=== PATIENT | female | born 1975 | race Caucasian/White ===

== ENCOUNTER → 2018-11-07 | Outpatient (CLI) | payer OTHER | LOC: LAB SHORT 17:44 → LAB 17:44 | DX: N39.0 Urinary tract infection, site not specified (principal) | CPT/HCPCS: 87077; 87086; 87186 ==

== ENCOUNTER → 2019-02-01 | Outpatient (CLI) | payer OTHER | END | disposition home or self-care (01) | LOC: LAB SHORT 13:34 → LAB 13:34 | DX: N39.0 Urinary tract infection, site not specified (principal) | CPT/HCPCS: 87077; 87086; 87186 ==

== ENCOUNTER → 2020-04-02 | Outpatient (CLI) | payer OTHER ==
[2020-04-08 18:18] LABS: TEST ORDERED: PAP LIQ-BASED
[2020-04-08 18:19] LABS: SOURCE: CERVIX
== END | disposition home or self-care (01) ==
LOC: LAB SHORT 17:59 → LAB 17:59
PROVIDERS: Hospitalist
DX: Z12.4 Encounter for screening for malignant neoplasm of cervix (principal)
CPT/HCPCS: G0145

== ENCOUNTER → 2020-09-04 | Outpatient (CLI) | payer OTHER | END | disposition home or self-care (01) | LOC: LAB 14:23 → LAB SHORT 14:23 | DX: N30.01 Acute cystitis with hematuria (principal) | CPT/HCPCS: 87086 ==

== ENCOUNTER 2022-09-25 11:23 | Emergency (ER) | payer BC ==
[~2022-09-25] VITALS: Ht 167.6 cm; Wt 90.7 kg
[2022-09-25] MEDS ORDERED: PAXIL20 M1 PO (12:02)
[2022-09-25 14:12] LABS: Albumin, Blood 3.5 g/dL (3.4-5.0); Albumin/Globulin Ratio 0.9 (0.8-1.8); Bilirubin, Total 0.3 mg/dL (0.1-1.0); Bun/Creatinine Ratio 22.1 (12.0-20.0); Calcium, Blood 8.6 mg/dL (8.5-10.1); Creatinine, Blood 0.54 mg/dL (0.40-1.00); Globulin, Blood 3.7 g/dL (2.2-4.0); Potassium, Blood 3.8 mmol/L (3.5-5.5); Total Protein, Blood 7.2 g/dL (6.4-8.2)
[2022-09-25 14:17] LABS: BASOPHILS ABSOLUTE AUTO 0.02 K/mm3 (0.00-0.23); BASOPHILS PERCENT AUTO 0 % (0-2); EOSINOPHILS ABSOLUTE AUTO 0.01 K/mm3 (0.00-0.68); EOSINOPHILS PERCENT AUTO 0 % (0-6); Hematocrit 37.3 % (33.0-51.0); Hemoglobin 12.6 g/dL (11.5-16.0); IMMATURE GRAN ABSOLUTE AUTO 0.05 K/mm3 (0.00-0.10); IMMATURE GRAN PERCENT AUTO 0 % (0-1); LYMPHOCYTES ABSOLUTE AUTO 0.71 K/mm3 (0.84-5.20); LYMPHOCYTES PERCENT AUTO 6 % (21-46); MONOCYTES ABSOLUTE AUTO 0.33 K/mm3 (0.16-1.47); MONOCYTES PERCENT AUTO 3 % (4-13); Mean Corpuscular HGB 31.2 pg (26.0-34.0); Mean Corpuscular HGB Conc 33.8 g/dL (31.5-36.5); Mean Corpuscular Volume 92 fL (80-100); Mean Platelet Volume 10.3 fL (9.1-12.4); NEUTROPHILS ABSOLUTE AUTO 11.82 K/mm3 (1.96-9.15); NEUTROPHILS PERCENT AUTO 91 % (41-73); Platelet Count 210 K/mm3 (150-400); RDW Coefficient Variation 13.1 % (11.7-14.2); RDW Standard Deviation 44.1 fL (35.1-46.3); Red Blood Cell Count 4.04 M/mm3 (3.80-5.20); White Blood Cell Count 12.94 K/mm3 (4.00-11.30)
[2022-09-25] MEDS ORDERED: HYDR1TAB94 PO (15:26)
[2022-09-25] MEDS ORDERED: DICY20 PO ×2 (15:26→16:38)
[2022-09-25] MEDS ORDERED: ONDA4ODT MM ×2 (15:26→16:38)
[2022-09-25] MEDS ORDERED: AMOCLA875 PO ×2 (15:26→16:38)
[2022-09-25] MEDS ORDERED: Norco 5-325 Ta1 EACH PO (16:39)
== END 2022-09-25 16:05 | disposition home or self-care (01) ==
LOC: ER 11:23
PROVIDERS: Emergency Medicine
DX: K52.9 Noninfective gastroenteritis and colitis, unspecified (principal); Z79.899 Other long term (current) drug therapy
CPT/HCPCS: 74177; 76705; 80053; 83690; 85025; A9270; J0500; J0780; J3010; J7030; Q9967

== ENCOUNTER → 2022-11-29 | Outpatient (CLI) | payer BC ==
[~2022-11-29] MED LIST: AMOCLA875 PO; DICY20 PO; HYDR1TAB94 PO; Norco 5-325 Ta1 EACH PO; ONDA4ODT MM; PAXIL20 M1 PO
[2022-12-02 13:09] LABS: F001-IGE EGG WHITE <0.10 kU/L (Class 0); F002-IGE MILK <0.10 kU/L (Class 0); F003-IGE CODFISH <0.10 kU/L (Class 0); F004-IGE WHEAT <0.10 kU/L (Class 0); F010-IGE SESAME SEED <0.10 kU/L (Class 0); F013-IGE PEANUT <0.10 kU/L (Class 0); F014-IGE SOYBEAN <0.10 kU/L (Class 0); F024-IGE SHRIMP <0.10 kU/L (Class 0); F207-IGE CLAM <0.10 kU/L (Class 0); F256-IGE WALNUT <0.10 kU/L (Class 0); F338-IGE SCALLOP <0.10 kU/L (Class 0)
== END | disposition home or self-care (01) ==
LOC: LAB SHORT 17:40 → LAB 17:40
PROVIDERS: Hospitalist
DX: Z91.011 Allergy to milk products (principal)
CPT/HCPCS: 86003

== ENCOUNTER → 2024-04-11 | Outpatient (CLI) | payer OTHER ==
[2024-04-14 09:51] LABS: CALPROTECTIN,FECAL 19 ug/g (<=49)
== END | disposition home or self-care (01) ==
LOC: LAB SHORT 11:49 → LAB 11:49
PROVIDERS: Physician Assistant Medical
DX: R19.7 Diarrhea, unspecified (principal); R19.5 Other fecal abnormalities
CPT/HCPCS: 83993

== ENCOUNTER 2024-08-15 08:37 | Day surgery (SDC) | payer OTHER ==
[~2024-08-15] VITALS: Ht 167.6 cm; Wt 185.8 kg
[~2024-08-15 08:37] MED LIST changes: +Lactated Ringer's 1,000 ML IV ONE; +propofoL 50 ML IV ONE
[2024-08-15] MEDS ORDERED: Lactated Ringer's 1,000 ML IV ONE (09:04)
[2024-08-15 10:44] VITALS: BP 121/78
== END 2024-08-15 10:41 | disposition home or self-care (01) ==
LOC: ORSCSDS 08:37
PROVIDERS: Internal Medicine Gastroenterology
PROC: 0DBE8ZX Excision of Large Intestine, Via Natural or Artificial Opening Endoscopic, Diagnostic (ICD-10-PCS; principal; 2024-08-15 10:15)
PROC: 0DBN8ZX Excision of Sigmoid Colon, Via Natural or Artificial Opening Endoscopic, Diagnostic (ICD-10-PCS; principal; 2024-08-15 10:15)
DX: R19.7 Diarrhea, unspecified (principal); K63.5 Polyp of colon; R19.4 Change in bowel habit; Z87.891 Personal history of nicotine dependence
CPT/HCPCS: 88305; J2704; J7120

== ENCOUNTER → 2025-09-16 | Outpatient (CLI) | payer OTHER ==
[~2025-09-16] MED LIST changes: -Lactated Ringer's 1,000 ML IV ONE; -propofoL 50 ML IV ONE
== END ==
LOC: LAB 16:40 → LAB SHORT 16:40
PROVIDERS: Hospitalist
DX: Z12.4 Encounter for screening for malignant neoplasm of cervix (principal)
CPT/HCPCS: 87624; G0145